=== PATIENT | female | born 1950 | race Caucasian/White ===

== ENCOUNTER 2018-04-01 06:36 | Observation (INO) ==
[2018-04-01] MEDS ORDERED: Nitroglycerin 0.4 MG TAB.SUBL SL PRN (06:52)
[2018-04-01] MEDS ORDERED: Aspirin 81 MG TAB.CHEW PO ONE (06:52)
--- NOTE | 2018-04-01 06:58 | Emergency Department Note ---
Disposition Clinical Impression: Chest pain Qualifiers: Chest pain type: unspecified Qualified Code(s): R07.9 - Chest pain, unspecified Disposition: Admitted As Inpatient Condition: Good Time of Disposition: 08:34 General Adult HPI - General Chief complaint: ED Cardiac Arrest/CPR Stated complaint: chest pain, headache, rosamaria Time Seen by Provider: 04/01/18 06:52 Source: patient, family Mode of arrival: private vehicle Limitations: no limitations Nursing Notes Reviewed: Yes Vital Signs Reviewed: Yes - History of Present Illness HPI Narrative: Hilaria is a pleasant 68-year-old female with a past medical history of hypertension. She presents to the emergency room with left-sided chest pain with radiating down her left arm starting at 5 AM. She states that she woke up at her normal time went to the bathroom when the pain started. She has not taken any medication for her chest pain. She states that she normally takes a daily aspirin but has not taken this today. She denies any cardiac history including previous MA or stents. She currently rates her pain at a 1 out of 2 and describes as dull. She is unsure if anything makes the pain better or worse. She has not had a stress test in the past year. She states that she takes atenolol for her hypertensive control. Pt Subjective Complaint: chest pain Onset (ago): hour(s) Location: chest Radiation: extremity (left) Pain Scale: 1 Quality: aching Improves with: nothing Worsens with: nothing Associated symptoms: Reports: denies other symptoms - Related Data Allergies Allergy/AdvReac Type Severity Reaction Status Date / Time No Known Allergies Allergy Verified 04/01/18 07:02 All systems ED: reviewed and negative except as stated. Review of Systems: As Per HPI Past Medical History - Past Medical History Medical history: Reports: hyperlipidemia, hypertension, kidney stones Psychiatric history: Reports: no psych history - Social History Smoking Status: Never smoker Alcohol use: Reports: none Physical Exam - General Limitations: no limitations General appearance: alert - Head Head exam: atraumatic - Eye Eye exam: Present: normal appearance - ENT ENT exam: normal exam - Neck Neck exam: Present: normal inspection - Chest Chest inspection: Present: normal inspection - Respiratory Respiratory exam: Present: normal lung sounds bilaterally - Cardiovascular Cardiovascular exam: Present: regular rate, normal rhythm - Abdominal Exam Abdominal exam: Present: soft, Non-Tender - Extremities Exam Extremities exam: Present: normal inspection - Expanded Lower Extremity Exam Hip/Pelvis exam: Present: normal inspection Upper leg exam: Present: normal inspection Knee exam: Present: normal inspection Course Course Narrative: Blood pressure was initially 170 systolic. This resolved following Nitropaste applied. At time of admission her systolic blood pressure was 120. Patient has not had a stress test in the past year. Admitted for chest pain rule out. At admission she was chest pain-free. Patient did have aspirin administered in the emergency room. Vital Signs Temperature 97.8 F 04/01/18 06:45 Pulse Rate 66 04/01/18 06:45 Respiratory Rate 20 04/01/18 06:45 Blood Pressure 170/74 04/01/18 06:45 O2 Sat by Pulse Oximetry 97 04/01/18 06:45 Temperature 97.8 F 04/01/18 06:45 Pulse Rate 66 04/01/18 06:45 Respiratory Rate 20 04/01/18 06:45 Blood Pressure 170/74 04/01/18 06:45 O2 Sat by Pulse Oximetry 97 04/01/18 06:45 Oxygen Delivery Oxygen Delivery Room Air Medical Decision Making - Medical Records Medical records reviewed: Yes I reviewed the patient's medical records. - Lab Data Lab results reviewed: Yes I reviewed the patient's lab results. - Radiology Data Radiology results reviewed: Yes I reviewed the patient's radiology results. - EKG Data EKG #1 EKG results narrative: Normal sinus rhythm short [place] interval and nonspecific ST depression BT 0645 Rate: normal S.B.A.R. - S.B.A.R. Transition of Care: Case transition to Dr. Alex accepting hospitalist. Background: Presenting Complaint (Left-sided chest pain with radiation down the left arm starting at 5 AM this morning initial set of troponin was negative. Initial EKG shows a normal sinus rhythm. She will be admitted for repeat labs repeat EKG potential further workup including stress.)
[2018-04-01 07:20] LABS: Basophils # 0.1 K/mcL (0.0-0.2); Basophils % 0.9 %; Eosinophils # 0.4 K/mcL (0.0-0.6); Eosinophils % 5.3 %; Hematocrit 44.4 % (35.3-44.9); Hemoglobin 15.3 g/dL (11.5-15.4); Immature Granulocytes % 0.3 % (0-4); Lymphocytes # 2.2 K/mcL (0.6-4.6); Lymphocytes % 29.1 %; Mean Corpuscular HGB Conc 34.5 g/dL (31.6-35.5); Mean Corpuscular Hemoglobin 31.1 pg (28.0-33.3); Mean Corpuscular Volume 90.2 fL (83.0-100.0); Mean Platelet Volume 11.8 fL (9.4-12.4); Monocytes # 0.5 K/mcL (0.0-1.3); Monocytes % 6.6 %; Neutrophils # 4.3 K/mcL (1.6-8.9); Platelet Count 185 K/mcL (140-400); Red Blood Count 4.92 M/mcL (3.82-4.97); Red Cell Distribution Width 12.5 % (11.5-14.5); Segmented Neutrophils % 57.8 %
[2018-04-01 07:43] LABS: Prothrombin Time 11.6 Seconds (9.4-12.1)
[2018-04-01 07:44] LABS: Troponin I < 0.03 ng/mL (< 0.04)
[2018-04-01 07:45] LABS: BUN/Creatinine Ratio 21 (6-26); Blood Urea Nitrogen 18 mg/dL (8-23); Calcium 9.5 mg/dL (8.6-10.3); Carbon Dioxide 24 mEq/L (23-29); Chloride 107 mEq/L (98-107); Glucose 131 mg/dL (70-105); Magnesium 2.1 mg/dL (1.6-2.6); Osmolality,Calculated 296 (280-300); Potassium 3.9 mEq/L (3.5-5.1); Sodium 141 mEq/L (136-145); eGFR For Non-African Americans > 60 (> 60)
[2018-04-01 07:46] LABS: Activated Partial Thrombo Time 34.5 Seconds (26.0-36.0)
[2018-04-01] MEDS ORDERED: Acetaminophen 325 MG TABLET PO PRN (09:03)
[2018-04-01] MEDS ORDERED: Naloxone 0.4 MG/ML INJ IVP PRN (09:03)
--- NOTE | 2018-04-01 10:09 | Internal Med History&Physical ---
Date of Encounter: 04/01/18 Time of Encounter: 09:50 Internal Medicine - H&P: HPI Chief complaint: Chest pain Admitted From: Emergency Dept Plans for Post Hospital Care: Home History of present illness: Ms. Lal is a 68 year old female patient with a history of hypertension who presented to the ER with complaints of left-sided chest pain radiating down the left upper extremity that began at 5 AM this morning. Pain was improving on its own but the time she came to the ER and eventually received aspirin. Patient is currently chest pain-free. She reports that over the past couple of weeks she has been having episodes of chest pain intermittently that spontaneously resolved. She denies any palpitations. She does get occasional shortness of breath. No lower extremity swelling. No prior history of cardiac disease. Past Med Surg Social Fam HX - Past Medical History Attestation: Yes The following information was validated with the patient. Source: patient Medical history: hyperlipidemia, hypertension, kidney stones Psychiatric history: no psych history - Social History Smoking Status: Never smoker Alcohol use: none - Additional Family History Additional family history: Family history of coronary artery disease and [place] in her father and brothers Internal Medicine - H&P: Meds Aspirin [Lo-Dose Aspirin EC] 81 mg PO DAILY 04/01/18 [History] Atenolol [Tenormin] 75 mg PO DAILY 04/01/18 [History] Atorvastatin [Lipitor] 10 mg PO HS 04/01/18 [History] 3 Allergy/AdvReac Type Severity Reaction Status Date / Time No Known Allergies Allergy Verified 04/01/18 07:02 All Systems PM: A 10-system review of systems was performed and is negative for pertinent findings except as documented above in the HPI. - Constitutional Constitutional: no chills, no fever(s), no night sweats - EENT Eyes: no change in vision, no discharge, no pain, no photophobia Ears: no ear discharge, no ear pain, no tinnitus Nose, mouth and throat: no dysphagia, no nasal discharge, no neck pain, no sore throat - Cardiovascular Cardiovascular ROS IM: chest pain, no diaphoresis, no dyspnea, no lightheadedness, no palpitations, no syncope - Respiratory Respiratory: dyspnea, no cough, no wheezing, no excessive phlegm production - Gastrointestinal Gastrointestinal: no abdominal pain, no diarrhea, no hematemesis, no hematochezia, no melena, no nausea, no vomiting - Genitourinary Genitourinary: no change in urinary stream, no dysuria, no flank pain, no hematuria - Musculoskeletal Musculoskeletal ROS IM: no numbness, no tingling - Integumentary Integumentary IM: no rash, no unusual bruising - Neurological Neurological ROS: no confusion, no convulsions, no focal weakness, no numbness, no tingling, no tremor(s) - Hematologic/Lymphatic Hematologic/Lymphatic: no easy bruising - Constitutional Vitals: Temp Pulse Resp BP Pulse Ox 97.8 F 66 18 135/55 97 04/01/18 06:45 04/01/18 06:45 04/01/18 09:32 04/01/18 09:32 04/01/18 06:45 General appearance: Present: cooperative, A&O X 3, answers questions appropriately Exam: . - Neck Neck exam general surgery: Present: supple, trachea midline. Absent: lymphadenopathy - Respiratory Respiratory exam: Present: CTAB. Absent: accessory muscle use, rales, rhonchi, wheezes - Cardiovascular Cardiovascular exam: Present: RRR, +S1, +S2. Absent: diastolic murmur, gallop, rubs, systolic murmur - GI/Abdominal GI/Abdominal exam: Present: normal bowel sounds, soft, no peritoneal signs. Absent: distended, tenderness - Extremities Exam Extremities exam: Present: warm, radial pulses palpable and symmetrical. Absent : calf tenderness, cyanotic, pedal edema - Neurological Exam Neurological exam: Present: CN II-XII intact, oriented X3, no focal deficits. Absent: facial droop, speech deficit - Skin Skin exam: Present: dry, intact Internal Med - H&P Results - Labs CBC & Chem 7: 04/01/18 06:58 04/01/18 06:58 - EKG Data Interpretation IM: normal EKG - Impressions Impressions Chest X-Ray 04/01/18 06:53 IMPRESSION: No convincing acute cardiopulmonary abnormality. D/ / Alex Elkins MD / Alex Elkins MD Interpreting Provider: Alex Elkins MD - Assessment and plan (1) Chest pain Current Visit: Yes Status: Acute Assessment and plan: Acute chest pain. Concerning for angina. We will trend troponins. Telemetry. Stress test in a.m. if troponins are negative. High risk for coronary artery disease given age, family history, hypertension history. Qualifiers: Chest pain type: precordial pain Qualified Code(s): R07.2 - Precordial pain (2) Essential hypertension Current Visit: Yes Status: Chronic Assessment and plan: Monitor blood pressure. Resume home medications. - Time Spent With Patient Total time spent is greater than 50% in coordination of care (as documented) at patient's floor/unit and/or counseling patient:
[2018-04-02 05:15] LABS: Chol/HDL Ratio 5.5 (0-4.9)
[2018-04-02] MEDS ORDERED: Regadenoson 0.4 MG/5 ML SYRINGE IVP ONE (06:35)
[2018-04-02 07:47] LABS: Estimated Average Glucose 126 mg/dl
[2018-04-02] MEDS ORDERED: Aspirin Enteric Coated 81 MG Tablet PO SCH (09:00)
--- NOTE | 2018-04-02 12:31 | Cardiology Consult Note ---
Date of Encounter: 04/02/18 Time of Encounter: 12:15 Assessment and Plan (1) Abnormal stress test Current Visit: Yes Status: Acute Stress test reviewed with patient and daughter. There was a medium sized reversible defect in the inferiolateral and anterolateral segments concerning for ischemia. There was no acute ST or T wave changes on ECG with stress. Chest pain reported during test. Cardiac risk factors include family history (brother VT 50's), HTN, HLD. LHC recommended for further evaluation of symptoms and stress test findings. R/B /A reviewed. Patient is agreeable to proceed. Continue asa, statin, and bb. SL NTG PRN pain. (2) Chest pain Current Visit: Yes Status: Acute Typical chest pain concerning for unstable angina. Currently pain free. Plan for LHC as stated above. Qualifiers: Chest pain type: unspecified Qualified Code(s): R07.9 - Chest pain, unspecified (3) Essential hypertension Current Visit: Yes Status: Chronic Continue bb. Low sodim diet. Discussion w patient/family: The assessment and plan as outlined above was discussed with the patient and/or family members who expressed understanding and agreement. All questions were answered. Thank you for involving us in the care of your patient. Please call with any questions. History of Present Illness Consult date: 04/02/18 Requesting physician: Iván Leger Consult reason: Abnormal stress test Chief complaint: Chest pain radiatin to left arm/axillary History of present illness: Ms. Lal is a 68 year old female with past medical history significant for HTN , HLD, and new diagnosis of borderline diabetes who presents with the c/o intermittent chest pain. C/o intermittent left sided pain radiating to her left axillary and down her left arm. Symptoms on-going for the last two weeks. The pain occurs at rest and with physical activity. Denies SOB or diaphoresis. Denies nausea. Initial work-up included troponin x 3 that was negative. EKG shows NSR with no acute T/ST changes. Stress test completed today was found to be abnormal. Cardiology consulted for further recommendations. She denies prior history of CAD. Significant family history of CAD including a brother with VT in his 50's. Her father recently with VT. Past Med Surg Social Fam HX - Past Medical History Medical history: hyperlipidemia, hypertension, kidney stones Psychiatric history: no psych history - Social History Smoking Status: Never smoker Alcohol use: none Drug use: none Medications and Allergies Aspirin [Lo-Dose Aspirin EC] 81 mg PO DAILY 04/01/18 [History] Atenolol [Tenormin] 75 mg PO DAILY 04/01/18 [History] Atorvastatin [Lipitor] 10 mg PO HS 04/01/18 [History] 3 Allergy/AdvReac Type Severity Reaction Status Date / Time No Known Allergies Allergy Verified 04/01/18 07:02 All Systems Review: The remainder of the systems were reviewed and are negative Physical Examination Vital Signs, Last 4 Hours Temp Pulse Resp BP Pulse Ox 04/02/18 11:10 98.6 F 62 16 151/71 95 04/02/18 09:26 98.1 F 67 16 182/75 97 General: Conversant, No Apparent Distress HEENT: Atraumatic, Normocephaly, Mucus Membranes Moist Neck: No JVD, Normal carotid pulses Cardiac: Reg Rate and Rhythm, Normal S1 and S2, No Murmur Lungs: Normal Breath Sounds, No Wheeze, Rales, Rhonchi Neuro: Alert and responsive, No focal deficits noted Abdomen: Soft, Non-Tender Skin: No rashes noted on visualized skin Musculoskeletal: No Chest Wall Tenderness Extremities: No Clubbing, No Cyanosis, No Edema, Normal Pulses Results 04/01/18 06:58 04/01/18 06:58 Lab Results 04/01/18 04/01/18 12:11 18:04 Troponin I < 0.03 < 0.03 - Imaging and Cardiology Stress Test: report reviewed - EKG Interpretation EKG results cardiology: personally reviewed Consult Discharge Plan - Plan Referrals: Santhosh Guillermo MD [Primary Care Provider] -
[2018-04-02] MEDS ORDERED: Heparin 1,000 UNITS/500 mL 500 ML ONE (17:07)
[2018-04-02] MEDS ORDERED: ISOVUE-370 200 ML INFUS..BTL IV ONE ×2 (17:07→17:58)
[2018-04-02] MEDS ORDERED: Nitroglycerin 1,000 MCG/10 ML VIAL IV ONE (17:07)
[2018-04-02] MEDS ORDERED: 0.9 % Sodium Chloride 1,000 ML ONE ×2 (17:07→17:27)
[2018-04-02] MEDS ORDERED: *HR* Heparin 10,000 UNIT/10 ML VIAL ONE (17:07)
--- NOTE | 2018-04-02 17:07 | Pre-Sedation Evaluation ---
Pre-sedation evaluation - Pre-sedation checklist Date of procedure: 04/02/18 Procedure: [facility] Recent Vitals: Last Vital Signs Temp 98.6 F 04/02/18 11:10 Pulse 62 04/02/18 11:10 Resp 16 04/02/18 11:10 BP 151/71 04/02/18 11:10 Pulse Ox 95 04/02/18 11:10 H&P (including ROS) documented in medical record: Yes Previous reaction to sedatives/anesthetics: No Dietary Status: NPO 6 hours prior to procedure Dentition: No loose teeth or bridges ASA Classification *see protocol: CLASS II-Mild systemic disease Cardiac Registry (Cardio Only) - Functional Capacity Functional Capacity: >=4 METS with symptoms - Clincal Frailty Scale Clinical Frailty Scale: Managing Well
[2018-04-02] MEDS ORDERED: *HR* Midazolam HCl 2 MG/2 ML VIAL ONE (17:25)
[2018-04-02] MEDS ORDERED: *HR* FentaNYL (PF) 100 MCG/2 ML VIAL ONE (17:25)
[2018-04-02] MEDS ORDERED: Tirofiban 5 MG/100 mL 5 MG/100 ML VIAL IV ONE (17:46)
[2018-04-02] MEDS ORDERED: Tirofiban 12.5 MG/250ML 12.5 MG/250 ML BAG IVC SCH (18:15)
--- NOTE | 2018-04-02 18:28 | Invasive Diagnostic Lab Proc ---
Name: Hilaria Lal Date of Study: 04/02/2018 Date: 1950 Ht: 61.0in Medical Record#: [id number] Age: 68 Wt: 173.06lb Gender: Female BSA: 1.78 Order #: [id number] BMI: 32.67 Physicians Procedure Physician: Carlotta Burnette MD Referring MD: Referring MD: Staff Name Position Time In Efren, Woo RN Pack Worker 05:24 PM Zhanna Mendoza RT Scrub 05:24 PM Evan De Guzman RN Monitor 05:24 PM Kaitlynn Turner RN Pack Worker 05:29 PM Indications Indication Abnormal Test - Stress Procedures Performed Procedure L HRT ARTERY/VENTRICLE ANGIO PRQ CARD GALLITO STENT W/ANGIO 1 VSL Pre-Procedure Checklist Informed consent is complete signed and on chart. H&P is on chart. ID band is on and ID verified with patient. Patient NPO for procedure The procedure was described for the patient and questions were answered. ECG is on chart. Plan of Care Patient will tolerate the procedure without complications. Adequate level of comfort will be maintained. Hemodynamics will remain stable Patient will recover from procedure without complications. Respiratory function will be maintained. Cardiac rhythm will remain stable. Patient temperature will be maintained. Patient and/or family have verbalized understanding of the procedure. Patient Education Chief Complaint/Reason for Test: Cardiac Cath Developmental Category: Geriatric (65+ years) Developmentally Appropriate for Age: Yes Learning Barriers: None Education Needs: Procedure Education Method: Verbal Information Taught: Cardiac Cath Educational Evaluation: Able to repeat information Intravenous Access Time IV Size Location DC'd Fluid/Drip Rate Units RN 20g 1 08/10" Patent On Arrival Rt Antecubital Allergies No Known Allergies Vital Signs Time BP (mmHg) HR (bpm) O2 Sat. RR (bpm) LOC 05:27 PM / % 5 = Fully awake and oriented or at pre-proc level 05:27 PM / % 4 = Oriented but drowsy 05:42 PM / % 4 = Oriented but drowsy 05:57 PM / % 4 = Oriented but drowsy 05:25 PM 164 / 107 61 99 % 6 05:27 PM 192 / 93 63 97 % 34 05:32 PM 191 / 72 60 97 % 20 05:37 PM 161 / 69 55 98 % 19 05:41 PM 158 / 73 57 98 % 14 05:46 PM 168 / 79 68 99 % 38 05:51 PM 164 / 78 63 100 % 18 05:56 PM 168 / 75 66 100 % 19 06:01 PM 181 / 88 62 100 % 21 06:06 PM 187 / 90 65 99 % 21 Procedural Medications Time Medication Dose Units Method Given By 05:27 PM Oxygen 2 L/min nasal cannula Woo Schwartz RN 05:28 PM Versed 1 mg Intravenous Kaitlynn Turner RN 05:28 PM Fentanyl 50 mcg Intravenous Kaitlynn Turner RN 05:36 PM Lidocaine 2% 20 ml Subcutaneous Carlotta Burnette MD 05:48 PM Heparin 4000 units Intravenous Woo Schwartz RN 05:48 PM Aggrastat Bolus: 37.5 ml Intravenous Woo Schwartz RN 05:49 PM Aggrastat 5mg/100ml 13.5 ml Intravenous Woo Schwartz RN 06:04 PM Brilinta 180 mg Orally Woo Schwartz RN ASA Classification: CLASS II- Mild systemic disease (i.e. well-controlled diabetes, hypertension, asthma, cigarette smoking) Vaishali Score Preprocedure Postprocedure Activity 2- Moves 4 extremities sustained head lift Activity Circulation 2- SBP +/= 20 points of pre-anesthetic level Circulation Consciousness 2- Awake and alert oriented x 3 Consciousness O2 Saturation 2- Able to maintain O2 satruation of 92% on room air O2 Saturation Respiratory 2- Able to deep breathe and cough well Respiratory Total Score 10 Total Score Contrast Agent: Isovue Diagnostic Contrast: 133 ml Total Contrast: 133 ml Fluoro Dose: 7614 mGy Procedure Log Time Note Enter By 05:23 PM Pt arrived to slab depiler operator 2 at 17:23 kmavis 05:23 PM Patient charges- Angio tray pack, Navilyst 3mm J, Pulse Oximetry and ACIST tubing and transducer kmavis 05:23 PM IV Supplies used: J loop Angio Cath. kmavis 05:23 PM Physician arrived 17:23 kmavis 05:23 PM ASA Class CLASS II- Mild systemic disease (i.e. well-controlled diabetes, hypertension, asthma, cigarette smoking) kmavis 05:23 PM Meet and greet completed kmavis 05:23 PM Sign in performed according to hospital policy. [facility] 05:23 PM Procedure start 17:23 [facility] 05:24 PM Woo Schwartz RN Position: Pack Worker Time in: 17:24 kmavis 05:24 PM Zhanna Mendoza RT Position: Scrub Time in: 17: kmavis 05:25 PM Evan De Guzman RN Position: Monitor Time in: : [facility] 05:25 PM CathStat 05:25 PM Case Start 05:25 PM NIBP STAT measurement started. 05:25 PM Pressure channel 1 zeroed. 05:25 PM HR=61 bpm, PUJC=213/107 mmhg, SpO2=99 %, Resp=6 B/min 05:26 PM Vitals capture started with the following parameters, Patient=Adult, Interval=5 min, Initial Szhljlcs=996 mmHg, Deflation Rate=5 mmHg, Cuff placed on Right Arm 05:26 PM Hair removed from procedure site in procedure lab using clippers. Bilateral groin prepped with Chloraprep by Lorraine Cage (R), then patient was draped. Skin intact. [facility] :27 PM Time: 17:27 Patient comfortable and pain free: Yes [facility] : PM Time: 17:27LOC: 5 = Fully awake and oriented or at pre-proc level coy : PM Time: 17:27 Oxygen on at 2 L/min per nasal cannula by Woo Schwartz RN [facility] 05:27 PM HR=63 bpm, QODQ=094/93 mmhg, SpO2=97.0 %, Resp=34 B/min, Comment=NSR 05:28 PM Time: 17:28 Versed 1 mg Intravenous Given by Kaitlynn Turner RN [facility] 05:28 PM Time: 17:28 Fentanyl 50 mcg Intravenous Given by Kaitlynn Turner RN [facility] 05:29 PM Kaitlynn Turner RN Position: Pack Worker Time in: : [facility] 05:32 PM HR=60 bpm, RSKS=427/72 mmhg, SpO2=97.0 %, Resp=20 B/min, Comment=NSR 05:36 PM Clinical Presentation: Unstable angina avis 05:36 PM Time out performed according to hospital policy [facility] 05:37 PM HR=55 bpm, CZGH=050/69 mmhg, SpO2=98.0 %, Resp=19 B/min, Comment=sb 05:37 PM Time: 17:36 20 ml Lidocaine 2% to right groin Subcutaneous Given by Carlotta Burnette MD kmavis 05:38 PM Micro-Introducer Kit utilized for sheath placement kmavis 05:39 PM Access obtained by percutaneous puncture. 6Fr 10cm Terumo [place] sheath placed in right Femoral artery. [id number] kmavis 05:39 PM 5Fr FR 4 catheter inserted over the wire DN kmavis 05:39 PM Recorded ECG: HR=54 Condition=Condition 1 05:39 PM 0.035 145cm Navilyst 3mmJ wire [id number] kmavis 05:40 PM Recorded Pressure: Ao, HR=55, Condition=Condition 1 (Aorta) Ao 127/47/78 05:40 PM RCA angiography performed in multiple views. kmavis 05:41 PM Catheter removed kmavis 05:41 PM HR=57 bpm, MNKJ=486/73 mmhg, SpO2=98.0 %, Resp=14 B/min, Comment=sb 05:42 PM 5Fr FL 4 catheter inserted over the wire DN kmavis 05:42 PM Time: 17:27LOC: 4 = Oriented but drowsy kmavis 05:42 PM Time: 17:27 Patient comfortable and pain free: Yes kmavis 05:42 PM LCA angiography performed in multiple views. kmavis 05:44 PM Lesion found in Proximal Circumflex. Pre Stenosis: 99 Pre ERIKA Flow: 3: Complete and Brisk Flow/Perfusion kmavis 05:45 PM Catheter removed kmavis 05:45 PM 5Fr Pigtail catheter inserted over the wire DN kmavis 05:46 PM Recorded Pressure: LV, HR=69, Condition=Condition 1 (Left Ventricle) LV 141/0/0 05:46 PM Recorded Pressure: LV, HR=70, Condition=Condition 1 (Left Ventricle) LV 150/0/0 05:46 PM HR=68 bpm, CBDZ=268/79 mmhg, SpO2=99.0 %, Resp=38 B/min 05:47 PM Recorded Pressure: LV, Ao, HR=68, Condition=Condition 1 (Left Ventricle) LV 138/-2/-2, (Aorta) Ao 135/49/85 05:47 PM Catheter selectively placed in left ventricle kmavis 05:47 PM Catheter removed kmavis 05:48 PM 6Fr XB3.5 Cordis guide catheter was used to cannulate the PCI vessel successfully. reused? No kmavis 05:48 PM .014 [employer] [place] 190cm guide wire across target lesion- successful. reused? No kmavis 05:48 PM Inflation device was opened. kmavis 05:48 PM Time: 17:48 Heparin 4000 units Intravenous Given by Woo Schwartz RN kmavis 05:49 PM Time: 17:48 Aggrastat Bolus: 37.5 ml Intravenous Given by Woo Schwartz RN Shannon pump kmavis 05:49 PM Time: 17:49 Aggrastat 5mg/100ml 13.5 ml Intravenous Given by Woo Schwartz RN Shannon pump kmavis 05:50 PM Recorded Pressure: Ao, HR=63, Condition=Condition 1 (Aorta) Ao 144/49/84 05:51 PM 2.0 mm x 12 mm Emerge Monorail balloon across target lesion- successful. reused? No kmavis 05:51 PM HR=63 bpm, YTAI=333/78 mmhg, IdB3=636.0 %, Resp=18 B/min 05:53 PM Recorded Pressure: Ao, HR=57, Condition=Condition 1 (Aorta) Ao 142/47/83 05:54 PM Balloon inflated @ 6 sharon for 6 seconds kmavis 05:55 PM Balloon inflated @ 6 sharon for 6 seconds kmavis 05:56 PM HR=66 bpm, JYVI=329/75 mmhg, FuU1=163.0 %, Resp=19 B/min, Comment=sb 05:57 PM 3.5mm x 20mm Cordis EluNIR drug-eluting stent across target lesion- successful Lot #[id number] kmavis 05:57 PM Time: 17:42 Patient comfortable and pain free: Yes kmavis 05:57 PM Time: 17:42LOC: 4 = Oriented but drowsy kmavis 05:58 PM Stent deployed @ 9 sharon for 14 seconds kmavis 05:59 PM Stent balloon reinflated @ 12 sharon for 11 seconds kmavis 05:59 PM Stent delivery system removed intact. kmavis 05:59 PM Guide wire removed intact. kmavis 06:00 PM Guide catheter removed intact. kmavis 06:00 PM Procedure completed at 18:00 04/02/2018 kmavis 06:01 PM Did you address ERIKA flow and Dominance? Yes kmavis 06:01 PM HR=62 bpm, DODW=827/88 mmhg, OuB1=308.0 %, Resp=21 B/min 06:02 PM Sign out completed: Radiation Dose 801.39 mGy, 7614.36 cGy/cm2 Fluoro Time: 5.4 Isovue 370 - 200ml contrast 133 ml given by Carlotta Burnette MD. Complications: NoneCardiac Rehab Consult needed: YesConfirmed administered medications: Yes kmavis 06:02 PM Isovue 370 - 200ml,1 Bottle(s) used. kmavis 06:02 PM Arterial sheath pulled, Angio-seal closure device used and was Successful [id number] S/N. kmavis 06:02 PM Estimated Blood Loss: minimal kmavis 06:02 PM Post ECG NSR kmavis 06:02 PM Post Blood Pressure 181/88 kmavis 06:03 PM Information taught Cardiac Cath, PCI, and Angioseal kmavis 06:03 PM Education needs Procedure, Plan of Care, and Disease Process kmavis 06:03 PM Learning barriers :None kmavis 06:03 PM Education Methods Verbal kmavis 06:03 PM Education evaluation Able to repeat information kmavis 06:03 PM Site status No bleeding/hematoma - Rt Groin as reported by Zhanna Mendoza RT at 18:03 kmavis 06:05 PM Time: 18:04 Brilinta 180 mg Orally Given by Woo Schwartz RN kmavis 06:05 PM Plavix, Effient or Brilinta given Yes kmavis 06:05 PM Family placed in consult room. kmavis 06:05 PM Complications: None kmavis 06:06 PM HR=65 bpm, AFHP=334/90 mmhg, SpO2=99.0 %, Resp=21 B/min 06:07 PM Lesion found in Proximal RCA. Pre Stenosis: 20 Pre ERIKA Flow: kmavis 06:07 PM Lesion found in Proximal LAD. Pre Stenosis: 60 Pre ERIKA Flow: kmavis 06:07 PM Lesion found in Mid LAD. Pre Stenosis: 65 Pre ERIKA Flow: kmavis 06:13 PM Time: 17:57LOC: 4 = Oriented but drowsy kmavis 06:13 PM Time: 17:57 Patient comfortable and pain free: Yes kmavis 06:14 PM Report given to 3B RN Pt taken to 3B Room #39. 18:13 kmavis 06:14 PM Patient out of room: 18:14 kmavis Complications Complication None None None Hemodynamics Pressures Site Systolic/A Wave Diastolic/V Wave Mean AO 127 47 78 LV 141 0 0 LV 150 0 0 LV 138 -2 -2 AO 135 49 85 AO 144 49 84 AO 142 47 83 Post Procedure Information Blood Pressure: 181/88 mmHg Rhythm: NSR Post procedural instructions were given Closure Device Time Device Success/Fail 04/02/2018 6:08:00 PM Angio-Seal VIP Successful Site Checks Time Location Status Staff Sheath In? Note 06:03 PM Rt Groin No bleeding/hematoma Zhanna Mendoza RT No Pulses Time Site Pre-Procedure Post-Procedure Note Bilateral radial 2+ Bilateral DP & PT 2+ Updated by Radha Castorena RN on 04/02/2018 6:17:39 PM electronically signed on 04/02/2018 6:19:36 PM with status of Final
[2018-04-02] MEDS ORDERED: *HR* Ticagrelor 90 MG TABLET ONE (18:58)
[2018-04-02] MEDS ORDERED: *HR* Atropine Sulfate 1 MG/10 ML SYRINGE IVP STA (19:09)
[2018-04-02] MEDS ORDERED: *HR* Atropine Sulfate 1 MG/10 ML SYRINGE ONE (19:15)
[2018-04-02] MEDS: *HR* Ticagrelor 90 MG TABLET PO SCH (19:21)
[2018-04-03 05:05] LABS: Hematocrit 34.1 % (35.3-44.9)
[2018-04-03 05:30] LABS: BUN/Creatinine Ratio 24 (6-26); Blood Urea Nitrogen 18 mg/dL (8-23); eGFR For Non-African Americans > 60 (> 60)
[2018-04-03 05:49] LABS: Hemoglobin 11.8 g/dL (11.5-15.4)
[2018-04-03] MEDS: *HR* Ticagrelor 90 MG TABLET PO SCH (08:49)
[2018-04-03] MEDS ORDERED: Aspirin 81 MG TAB.CHEW PO SCH (09:00)
--- NOTE | 2018-04-03 09:55 | Cardiology Progress Note ---
Date of Encounter: 04/03/18 Time of Encounter: 09:51 Assessment and Plan (1) Abnormal stress test Current Visit: Yes Status: Acute S/p stress test for abnormal LHC. She recieved PCI to the lCx artery. Full report pending. There was no complication from the procedure. Denies recurrent chest pain. No complications from right femoral access site. Importance of DAPT with asa and brilinta uninterrupted for minimum of one year discussed and she voiced understanding. Brilinta co-pay card given. Continue statin and BB. Activity restrictions reviewed as stated above. Cardiac rehab ordered. She may return to work in 2 weeks. Out-pt f/u will be coordinated with [facility]. Call with questions. (2) Chest pain Current Visit: Yes Status: Acute Typical chest pain concerning for unstable angina, s/p PCI. Currently pain free. Qualifiers: Chest pain type: unspecified Qualified Code(s): R07.9 - Chest pain, unspecified (3) Essential hypertension Current Visit: Yes Status: Chronic Continue bb. Low sodium diet. Discussion w patient/family: The assessment and plan as outlined above was discussed with the patient and/or family members who expressed understanding and agreement. All questions were answered. Thank you for involving us in the care of your patient. Please call with any questions. Subjective Principal diagnosis: Abnormal stress test Interval history: No events overnight. Denies chest pain Objective Vital Signs, Last 4 Hours Temp Pulse Resp BP Pulse Ox 04/03/18 06:52 98.1 F 61 15 118/59 94 General: Conversant, No Apparent Distress HEENT: Atraumatic, Normocephaly, Mucus Membranes Moist Neck: No JVD, Normal carotid pulses Cardiac: Reg Rate and Rhythm, Normal S1 and S2, No Murmur Lungs: Normal Breath Sounds, No Wheeze, Rales, Rhonchi Neuro: Alert and responsive, No focal deficits noted Abdomen: Soft, Non-Tender Skin: No rashes noted on visualized skin Musculoskeletal: No Chest Wall Tenderness Extremities: No Clubbing, No Cyanosis, No Edema, Normal Pulses, Other (right femoral dressing removed. No hematoma. ) Results 04/03/18 04:44 04/03/18 04:44 Lab Results 04/03/18 04/03/18 04:44 04:44 Hgb 11.8 D Hct 34.1 L Plt Count 196 BUN 18 Creatinine 0.76 - Imaging and Cardiology Stress Test: report reviewed Cardiac cath: report reviewed - EKG Interpretation EKG results cardiology: personally reviewed Consult Discharge Plan - Plan Referrals: Santhosh Guillermo MD [Primary Care Provider] -
[2018-04-03 12:02] VITALS: BP 109/57
--- NOTE | 2018-04-03 12:51 | Discharge Summary ---
- NOTES TO OUTPATIENT PROVIDER Notes to Outpatient Provider: had abnormal stres test - PCI to ICx - on DAPT therapy - ASA and brilinta uninterrupted for minimum of one year Orders not resulted at time of discharge: Pending orders 04/01/18 10:12 NM pete perf SPECT multi [NM] Routine 04/02/18 14:18 CL Cardiac Catheterization [CL] Routine Date of Encounter: 04/03/18 Time of Encounter: 12:46 - Discharge Diagnosis (1) Chest pain Priority: Primary Status: Acute Qualifiers: Chest pain type: unspecified Qualified Code(s): R07.9 - Chest pain, unspecified (2) Essential hypertension Priority: Secondary Status: Chronic Hospital course: Ms. Lal is a 68 year old female past medical hx of HTN HLD borderline diabetes presented with c/o intermittent left sided pain radiating to her left axillary and down left arm - sx lasting approx 2 weeks occurs at rest and with activity . She underwent a cardaic stress test which did reveal medium sized reversible defect in the inferiolateral and anterolateral segments concerning for ischemia. There was no acute ST or T wave changes on ECG with stress. She underwent LHC and had PCI to the ICx artery She tolerated procedure well, no bleeding from access site. She will follow up with cardiology in 2 weeks. She will cont with DAPT brilinta and ASA for one year uninterrupted. She was given prescription for Brilinta as well as metoprolol and nitroglycerin She is hemodynamically stable and ready for discharge - Time Spent with Patient Total time spent providing and/or coordinating discharge services: - Discharge Medications Prescriptions: Nitroglycerin 0.4 mg SL Q5MIN PRN #30 tab.subl PRN Reason: chest pain - until pain free Metoprolol [Lopressor] 50 mg PO BID #60 tablet Ticagrelor [Brilinta] 90 mg PO BID #30 tablet Home Medications: Aspirin [Lo-Dose Aspirin EC] 81 mg PO DAILY 04/01/18 [History] Atenolol [Tenormin] 75 mg PO DAILY 04/01/18 [History] Atorvastatin [Lipitor] 10 mg PO HS 04/01/18 [History] Metoprolol [Lopressor] 50 mg PO BID #60 tablet 04/03/18 [Rx] Nitroglycerin 0.4 mg SL Q5MIN PRN #30 tab.subl 04/03/18 [Rx] Ticagrelor [Brilinta] 90 mg PO BID #30 tablet 04/03/18 [Rx] Allergies/Adverse Reactions: 3 Allergy/AdvReac Type Severity Reaction Status Date / Time No Known Allergies Allergy Verified 04/01/18 07:02 Date of admission: 04/01/18 09:16 Primary care physician: Santhosh Guillermo MD Consults: 04/02/18 10:58 Consult to Cardiology [CONS] Routine Comment: Consulting Provider: Cardiology Rama Reason for Consult: abnormal stress test Call Completed: Yes 04/02/18 18:05 Consult to Cardiac Rehabilitation-Phase1 [CONS] Routine Comment: Reason for Consult: post op PCI Call Completed: Yes Discharging clinician: Jen Monterroso Anticipated date of discharge: 04/03/18 - Constitutional Vitals: Temp Pulse Resp BP Pulse Ox 98.8 F 65 15 109/57 96 04/03/18 11:59 04/03/18 11:59 04/03/18 11:59 04/03/18 11:59 04/03/18 11:59 General appearance: Present: cooperative, A&O X 3, answers questions appropriately Exam: see above - Head Head exam: Present: atraumatic, normocephalic - Eye Eye exam: Present: PERRL, conjuntiva pink, sclera anicteric Pupils: Present: PERRL - Neck Neck exam general surgery: Present: supple, trachea midline. Absent: lymphadenopathy - Respiratory Respiratory exam: Present: CTAB. Absent: accessory muscle use, rales, rhonchi, wheezes - Cardiovascular Cardiovascular exam: Present: RRR, +S1, +S2. Absent: diastolic murmur, gallop, rubs, systolic murmur - GI/Abdominal GI/Abdominal exam: Present: normal bowel sounds, soft, no peritoneal signs. Absent: distended, tenderness - Extremities Exam Extremities exam: Present: warm, radial pulses palpable and symmetrical. Absent : calf tenderness, cyanotic, pedal edema - Neurological Exam Neurological exam: Present: CN II-XII intact, oriented X3, no focal deficits. Absent: pronater drift, facial droop, speech deficit - Skin Skin exam: Present: dry, intact - Patient Status Disposition: Home, Self-Care Condition: Good - Discharge Instructions Instructions: Chest Pain (DC), Chronic Hypertension (DC) Follow Up With: Santhosh Guillermo MD [Primary Care Provider] - - Diet and Activity Activity: return to work once cleared by your PCP/specialist Diet: low fat, low cholesterol, low salt diet
--- NOTE | 2018-04-04 07:38 | Electrocardiograph Report ---
[address] [place], [place] [address] Test Date: 2018-04-01 Pat Name: Hilaria Lal Department: [id number] Room: 3B39 Gender: F Electromechanical Assembly Technician: : 1950 Requested By: Amanda Valiente Order Number: [id number] Reading MD: Sayra Chavez Measurements Intervals [place] Rate: 67 P: 59 MT: 109 QRS: 70 QRSD: 102 T: 50 QT: 416 QTc: 440 Interpretive Statements Sinus rhythm Short MT interval Consider left atrial enlargement Nonspecific ST depression Electronically Signed On 04-04-2018 7:36:30 EDT by Sayra Chavez
--- NOTE | 2018-04-04 08:27 | Electrocardiograph Report ---
[address] [place], [place] [address] Test Date: 2018-04-02 Pat Name: Hilaria Lal Department: 113 Room: 3B39 Gender: F Lay Out Inspector: : 1950 Requested By: Carlotta Burnette Order Number: [id number] Reading MD: Sayra Chavez Measurements Intervals [place] Rate: 52 P: 38 DE: 124 QRS: 12 QRSD: 85 T: 38 QT: 440 QTc: 419 Interpretive Statements SINUS BRADYCARDIA MINIMAL VOLTAGE CRITERIA FOR LVH, CONSIDER NORMAL VARIANT Electronically Signed On 04-04-2018 8:26:15 EDT by Sayra Chavez
== END 2018-04-03 14:17 | disposition home or self-care (01) ==
LOC: 3BNU 06:36 → EMEROOARM 06:36 → 3BNU 09:58
PROVIDERS: ADMIT Internal Medicine; ATTEND Internal Medicine

== ENCOUNTER 2020-07-06 10:13 | Observation (INO) ==
[2020-07-06 10:56] LABS: Basophils % 0.5 %; Eosinophils # 0.3 K/mcL (0.0-0.6); Eosinophils % 3.9 %; Hematocrit 46.7 % (35.3-44.9); Hemoglobin 15.6 g/dL (11.5-15.4); Immature Granulocytes % 0.5 % (0-4); Lymphocytes # 1.8 K/mcL (0.6-4.6); Lymphocytes % 21.9 %; Mean Corpuscular HGB Conc 33.4 g/dL (31.6-35.5); Mean Corpuscular Hemoglobin 30.6 pg (28.0-33.3); Mean Corpuscular Volume 91.6 fL (83.0-100.0); Mean Platelet Volume 11.2 fL (9.4-12.4); Monocytes # 0.5 K/mcL (0.0-1.3); Monocytes % 5.6 %; Neutrophils # 5.5 K/mcL (1.6-8.9); Platelet Count 188 K/mcL (140-400); Red Cell Distribution Width 12.4 % (11.5-14.5); Segmented Neutrophils % 67.6 %; White Blood Count 8.2 K/mcL (4.3-11.1)
[2020-07-06 11:14] LABS: BUN/Creatinine Ratio 16 (6-26); Blood Urea Nitrogen 13 mg/dL (8-23); Calcium 9.9 mg/dL (8.6-10.3); Carbon Dioxide 26 mEq/L (23-29); Chloride 105 mEq/L (98-107); Glucose 116 mg/dL (70-105); Osmolality,Calculated 293 (280-300); Potassium 3.9 mEq/L (3.5-5.1); Sodium 141 mEq/L (136-145); Troponin I < 0.03 ng/mL (< 0.04); eGFR For African Americans > 60 (> 60); eGFR For Non-African Americans > 60 (> 60)
[2020-07-06] MEDS ORDERED: Naloxone 0.4 MG/ML INJ IVP PRN (12:21)
[2020-07-06] MEDS ORDERED: lisinopriL 5 MG TABLET PO SCH (13:45)
[2020-07-06] MEDS ORDERED: Nitroglycerin 0.4 MG TAB.SUBL SL PRN (13:50)
[2020-07-06 16:44] LABS: Estimated Average Glucose 146 mg/dl
[2020-07-06] MEDS: *HR* Heparin 5,000 UNIT/ML VIAL SQ SCH (17:54)
[2020-07-06] MEDS: *HR* Ticagrelor 90 MG TABLET PO SCH (20:49)
[2020-07-07] MEDS: *HR* Heparin 5,000 UNIT/ML VIAL SQ SCH (04:17)
[2020-07-07 04:27] LABS: Chol/HDL Ratio 3.9 (0-4.9)
[2020-07-07] MEDS ORDERED: Regadenoson 0.4 MG/5 ML SYRINGE IVP ONE (06:11)
[2020-07-07] MEDS ORDERED: Aspirin 81 MG TAB.CHEW PO SCH (09:00)
[2020-07-07] MEDS ORDERED: D5% in Water 1,000 ML IVC PRN (09:11)
[2020-07-07] MEDS ORDERED: Dextrose Gel 15 GM/37.5 ML TUBE PO PRN ×2 (09:11)
[2020-07-07] MEDS ORDERED: *HR* Dextrose 50 % in Water (Vial) 50 ML VIAL IVP PRN (09:11)
[2020-07-07] MEDS ORDERED: atenoloL 50 MG TABLET PO SCH (09:15)
[2020-07-07 11:05] VITALS: BP 129/74
[2020-07-07] MEDS: *HR* Ticagrelor 90 MG TABLET PO SCH (11:15)
[2020-07-07] MEDS ORDERED: Insulin LISPRO 300 UNITS/3 ML VIAL SQ SCH ×2 (11:30→21:00)
== END 2020-07-07 16:20 | disposition home or self-care (01) ==
LOC: 3BNU 10:13 → EMEROOARM 10:13 → SUATTDRO 12:36 → 3BNU 13:21
PROVIDERS: ADMIT Internal Medicine; ATTEND Internal Medicine